=== PATIENT | male | born 1955 | race Caucasian/White ===

== ENCOUNTER 2021-04-06 08:40 | Emergency (ER) | payer MEDICARE ==
[2021-04-06] MEDS ORDERED: Heparin Sodium 5,000 Units/ML Vial IVPUSH ONE (08:58)
[2021-04-06] MEDS ORDERED: Aspirin 81 MG Tab.Chew PO ONE (08:58)
[2021-04-06] MEDS ORDERED: Tenecteplase 50 MG Kit IV ONE ×2 (09:13→09:45)
[2021-04-06] MEDS ORDERED: Nitroglycerin 0.4 MG Tab.SL ONE (09:13)
[2021-04-06] MEDS ORDERED: Clopidogrel 75 MG Tab PO ONE (09:15)
[2021-04-06] MEDS: Nitroglycerin 0.4 MG Tab.SL SL PRN ×3 (09:16→09:31)
--- NOTE | 2021-04-06 09:39 | CR ---
CHEST: Portable 04/06/2021 at 9:11 AM CLINICAL HISTORY:Chest pain COMPARISON:None FINDINGS: The heart size, pulmonary vascularity and hilar structures are normal. No infiltrate effusion or pneumothorax is seen. There is a nodular focus in the right lung base. This likely represents a small granuloma. Comparison with prior studies of be helpful IMPRESSION: No acute cardiopulmonary process. Right lower lobe nodule likely a granuloma
[2021-04-06 09:43] VITALS: BP 108/65; PULSE 76
--- NOTE | 2021-04-06 12:23 | EDM.PDOC ---
ED HPI GENERAL MEDICAL PROBLEM - General Chief Complaint: Chest Pain Stated Complaint: CHEST PAIN,ARMS NUMB,SWEATING Time Seen by Provider: 04/06/21 08:45 Source of Information: Reports: Patient, Family History Limitations: Reports: No Limitations - History of Present Illness INITIAL COMMENTS - FREE TEXT/NARRATIVE: This is a 65-year-old male with history of hypertension who presents with concerns of chest pain. He reports that he was walking across his yard at approximately 0700 this morning when he had sudden onset of substernal chest pain with radiation into the arms bilaterally. Pain is currently severe, 7 or 8/10. Does not seem to be exertional. No associated dyspnea. He has no history of cardiac disease. No history of similar pain in the past. Does report history of GERD but this is different. No lower extremity swelling or pain, no history of DVT. Pain is nonpleuritic. Chest Pain Score (Numeric/FACES): 8 - Related Data Allergies Allergy/AdvReac Type Severity Reaction Status Date / Time No Known Allergies Allergy Verified 04/06/21 08:52 Home Meds: Home Meds Lisinopril 20 mg PO DAILY 06/02/13 [History] Ascorbic Acid [Vitamin C] 500 mg PO DAILY 06/04/13 [History] Aspirin [Halfprin] 81 mg PO DAILY 06/04/13 [History] Multivitamin [Multivitamins] 1 cap PO DAILY 06/04/13 [History] Famotidine [Pepcid] 20 mg PO DAILY 04/06/21 [History] Past Medical History HEENT History: Reports: Cataract, Impaired Vision Cardiovascular History: Reports: Hypertension Gastrointestinal History: Reports: Colon Polyp, GERD Musculoskeletal History: Reports: Back Pain, Chronic, Fracture, Osteoarthritis - Infectious Disease History Infectious Disease History: Reports: Chicken Pox, Measles, Mumps - Past Surgical History Head Surgeries/Procedures: Reports: None HEENT Surgical History: Reports: Cataract Surgery Cardiovascular Surgical History: Reports: None GI Surgical History: Reports: Colonoscopy, Hernia, Inguinal Musculoskeletal Surgical History: Reports: Other (See Below) Other Musculoskeletal Surgeries/Procedures:: Plate in left arm Social & Family History - Tobacco Use Tobacco Use Status *Q: Never Tobacco User - Caffeine Use Caffeine Use: Reports: Soda - Recreational Drug Use Recreational Drug Use: No ED ROS GENERAL - Review of Systems Review Of Systems: See Below Constitutional: Reports: No Symptoms HEENT: Reports: No Symptoms Respiratory: Reports: No Symptoms Cardiovascular: Reports: Chest Pain Endocrine: Reports: No Symptoms GI/Abdominal: Reports: No Symptoms : Reports: No Symptoms Musculoskeletal: Reports: No Symptoms Skin: Reports: No Symptoms Neurological: Reports: No Symptoms Psychiatric: Reports: No Symptoms Hematologic/Lymphatic: Reports: No Symptoms Immunologic: Reports: No Symptoms ED EXAM, GENERAL - Physical Exam Exam: See Below Exam Limited By: No Limitations General Appearance: Alert, Mild Distress Nose: Normal Inspection Throat/Mouth: Normal Inspection Head: Atraumatic, Normocephalic Neck: Normal Inspection Respiratory/Chest: No Respiratory Distress, Lungs Clear Cardiovascular: Regular Rate, Rhythm GI/Abdominal: Soft, Non-Tender Back Exam: Normal Inspection Extremities: Normal Inspection Neurological: Alert, Oriented Psychiatric: Normal Affect, Normal Mood Skin Exam: Warm, Dry #2 Interpretation Rhythm: NSR [place]: Normal P-Wave: Present QRS: Normal ST-T: Elevated Course - Vital Signs Last Recorded V/S: Last Vital Signs Temp 36.2 C 04/06/21 09:09 Pulse 76 04/06/21 09:43 Resp 13 04/06/21 09:09 BP 108/65 04/06/21 09:43 Pulse Ox 100 04/06/21 09:09 - Orders/Labs/Meds Labs: Laboratory Tests 04/06/21 04/06/21 Range/Units 09:01 09:01 WBC 5.9 (4.5-11.0) K/uL RBC 4.99 (4.30-5.90) M/uL Hgb 15.3 H (12.0-15.0) g/dL Hct 45.2 (40.0-54.0) % MCV 91 (80-98) fL MCH 31 (27-31) pg MCHC 34 (32-36) % Plt Count 303 (150-400) K/uL Sodium 138 L (140-148) mmol/L Potassium 4.2 (3.6-5.2) mmol/L Chloride 103 (100-108) mmol/L Carbon Dioxide 26 (21-32) mmol/L Anion Gap 13.2 (5.0-14.0) mmol/L BUN 21 H (7-18) mg/dL Creatinine 1.5 H (0.8-1.3) mg/dL Est Cr Clr Drug Dosing 44.68 mL/min Estimated GFR (MDRD) 47 L (>60) Glucose 169 H (74-106) mg/dL Calcium 8.8 (8.5-10.1) mg/dL Total Bilirubin 0.5 (0.2-1.0) mg/dL AST 17 (15-37) U/L ALT 35 (12-78) U/L Alkaline Phosphatase 103 (46-116) U/L Total Protein 6.8 (6.4-8.2) g/dL Albumin 3.6 (3.4-5.0) g/dL Globulin 3.2 (2.3-3.5) g/dL Albumin/Globulin Ratio 1.1 L (1.2-2.2) Lipase 147 (73-393) U/L Meds: Medications Discontinued Medications Generic Name Dose Route Start Last Admin Trade Name Freq PRN Reason Stop Dose Admin Aspirin 324 mg 04/06/21 08:58 04/06/21 09:06 Aspirin 81 Mg Tab.Chew PO 04/06/21 08:59 324 mg ONETIME ONE Administration Clopidogrel Bisulfate 300 mg 04/06/21 09:15 04/06/21 09:18 Clopidogrel 75 Mg Tab PO 04/06/21 09:16 300 mg ONETIME ONE Administration Heparin Sodium (Porcine) 4,000 units 04/06/21 08:58 04/06/21 09:05 Heparin Sodium 5,000 Units/Ml Vial IVPUSH 04/06/21 08:59 4,000 units BOLUS ONE Administration Nitroglycerin 0.4 mg 04/06/21 09:15 04/06/21 09:31 Nitroglycerin 0.4 Mg Tab.Sl SL 04/07/21 09:15 0.4 mg Q5M PRN Administration Chest Pain Nitroglycerin Confirm 04/06/21 09:13 04/06/21 09:24 Nitroglycerin 0.4 Mg Tab.Sl Administered 04/06/21 09:14 Not Given Dose 0.4 mg .ROUTE .STK-MED ONE Tenecteplase 45 mg 04/06/21 09:45 04/06/21 09:41 Tenecteplase 50 Mg Kit IV 04/06/21 09:46 45 mg ONETIME ONE Administration Protocol - Re-Assessments/Exams Free Text/Narrative Re-Assessment/Exam: This is a 65-year-old male without known history of cardiac disease who presents with chest pain. EKG obtained on arrival in the emergency department shows an inferior STEMI with lateral reciprocal change. On exam he is noted to be mildly distressed, hypertensive on initial evaluation with a blood pressure of 160/100, otherwise normal vitals. With his concerning EKG we obtained immediate IV access. He was given an oral dose of aspirin. Stat chest x-ray was obtained and reassuring. He was given 2 doses of sublingual nitroglycerin with reduction in his pain. I discussed this case with the on-call auger machine offbearer in [place]. He agrees with our diagnosis of STEMI. At that time we ordered a bolus of heparin, 300 mg of Plavix, and the recommendation from the weight clerk was to proceed with thrombolysis given potential long transfer time to their facility. I had a risk-benefit discussion for tenecteplase administration with the patient, reviewed contraindications of which he had none, and we proceeded to administer this as well without any immediate known complication. Chest pain remained well controlled in the ED with several doses of sublingual nitro, he did show some drop in blood pressure with systolics around 100 to the mid 90s so he was also bolused with a liter of fluid, not surprising given his EKG findings which are suspect for a right-sided infarct. The patient was emergently transferred to [facility] in [place] for reevaluation in their emergency department and likely emergent cardiac catheterization. 04/06/21 12:18 Departure - Departure Time of Disposition: 10:30 Disposition: DC/Tfer to Acute Hospital 02 Reason for Transfer *Q: Primary PCI Indicated Clinical Impression: STEMI (ST elevation myocardial infarction) Qualifiers: Involved coronary artery: unspecified coronary artery Qualified Code(s): I21.3 - ST elevation (STEMI) myocardial infarction of unspecified site Referrals: Jabari Chester MD [Primary Care Provider] - Forms: ED Department Discharge Critical Care Note - Critical Care Note Total Time (mins): 35 Comments: 35 minutes of critical care time were spent diagnosing and treating ST elevation myocardial infarction requiring thrombolytic administration to prevent further life-threatening cardiac deterioration. This is exclusive of any separate billable procedures. Sepsis Event Note (ED) - Evaluation Sepsis Screening Result: No Definite Risk - Focused Exam Vital Signs: Vital Signs Temp Pulse Resp BP BP Pulse Ox 04/06/21 09:43 76 108/65 04/06/21 09:31 110/71 04/06/21 09:21 123/79 04/06/21 09:16 152/92 H 04/06/21 09:09 36.2 C 78 13 161/102 H 100 04/06/21 08:52 36.2 C 78 13 161/102 H 100
== END 2021-04-06 10:05 ==
LOC: JP.ED 08:40
DX: I21.3 ST elevation (STEMI) myocardial infarction of unspecified site (principal); I10 Essential (primary) hypertension; K21.9 Gastro-esophageal reflux disease without esophagitis; Z79.899 Other long term (current) drug therapy; Z79.82 Long term (current) use of aspirin
CPT/HCPCS: 36415; 37195; 71045; 80053; 83690; 85027; 96374; 99285; A9270; J1644; J3101

== ENCOUNTER 2021-07-05 14:27 | Emergency (ER) | payer MEDICARE ==
--- NOTE | 2021-07-05 14:47 | EDM.PDOC ---
ED HPI GENERAL MEDICAL PROBLEM - General Chief Complaint: Respiratory Problem Stated Complaint: SOB, POST SURGERY FEET SWOLLEN Time Seen by Provider: 07/05/21 14:30 Source of Information: Reports: Patient, Old Records History Limitations: Reports: No Limitations - History of Present Illness INITIAL COMMENTS - FREE TEXT/NARRATIVE: Ruiz is a 65-year-old male presenting to the ED for evaluation of increasing dyspnea and peripheral edema in the lower extremities over the last couple of days. Patient underwent emergent stenting 8 weeks ago for right coronary artery occlusion causing an acute coronary syndrome and during that evaluation was found to have tandem lesions in the LAD starting very near the left main. It was determined that they would do a staggered revascularization approach and on 06/26/2021 he underwent a coronary bypass graft x2 using the radial artery conduit. The patient had been doing well and was discharged from [facility] on 06/29/2021. - Related Data Allergies Allergy/AdvReac Type Severity Reaction Status Date / Time No Known Allergies Allergy Verified 04/06/21 08:52 Home Meds: Home Meds Ascorbic Acid [Vitamin C] 500 mg PO DAILY 06/04/13 [History] Aspirin [Halfprin] 81 mg PO DAILY 06/04/13 [History] Multivitamin [Multivitamins] 1 cap PO DAILY 06/04/13 [History] Acetaminophen/HYDROcodone [HYDROcodone-Acetaminophen 5-325 MG *] 1 tab PO Q4H PRN 07/05/21 [History] Amiodarone [Cordarone] 200 mg PO DAILY 07/05/21 [History] Clopidogrel [Plavix] 75 mg PO DAILY 07/05/21 [History] Metoprolol Succinate [Toprol XL] 25 mg PO DAILY 07/05/21 [History] Omeprazole 20 mg PO DAILY 07/05/21 [History] [id number]+D 1 tab PO BID 07/05/21 [History] atorvaSTATin [Lipitor] 40 mg PO BEDTIME 07/05/21 [History] Past Medical History HEENT History: Reports: Cataract, Impaired Vision Cardiovascular History: Reports: Hypertension Gastrointestinal History: Reports: Colon Polyp, GERD Musculoskeletal History: Reports: Back Pain, Chronic, Fracture, Osteoarthritis - Infectious Disease History Infectious Disease History: Reports: Chicken Pox, Measles, Mumps - Past Surgical History Head Surgeries/Procedures: Reports: None HEENT Surgical History: Reports: Cataract Surgery Cardiovascular Surgical History: Reports: None GI Surgical History: Reports: Colonoscopy, Hernia, Inguinal Musculoskeletal Surgical History: Reports: Other (See Below) Other Musculoskeletal Surgeries/Procedures:: Plate in left arm Social & Family History - Caffeine Use Caffeine Use: Reports: Soda ED ROS GENERAL - Review of Systems Review Of Systems: See Below Constitutional: Reports: Malaise HEENT: Reports: No Symptoms Respiratory: Reports: Shortness of Breath, Cough Cardiovascular: Reports: Edema Endocrine: Reports: No Symptoms GI/Abdominal: Reports: No Symptoms : Reports: No Symptoms Musculoskeletal: Reports: No Symptoms Skin: Reports: No Symptoms Neurological: Reports: No Symptoms Psychiatric: Reports: No Symptoms Hematologic/Lymphatic: Reports: No Symptoms Immunologic: Reports: No Symptoms ED EXAM, GENERAL - Physical Exam Exam: See Below Exam Limited By: No Limitations General Appearance: Alert, No Apparent Distress Throat/Mouth: Normal Oropharynx, Normal Voice, No Airway Compromise Head: Atraumatic, Normocephalic Neck: Normal Inspection, Supple. No: Carotid Bruit, Lymphadenopathy (R), Lymphadenopathy (L) Respiratory/Chest: No Respiratory Distress, Lungs Clear, Normal Breath Sounds, No Accessory Muscle Use. No: Crackles, Rales, Rhonchi, Wheezing Cardiovascular: Normal Peripheral Pulses, Regular Rate, Rhythm, No Murmur GI/Abdominal: Normal Bowel Sounds, Soft, Non-Tender Extremities: Pedal Edema (1+ pedal edema lower legs) Neurological: Alert, Oriented, Normal Cognition, No Motor/Sensory Deficits Psychiatric: Normal Affect, Normal Mood Skin Exam: Warm, Dry, Intact, Normal Color #1 Interpretation EKG Date: 07/05/21 Time: 14:46 Rhythm: NSR Rate (Beats/Min): 99 [place]: Normal P-Wave: Present (Prolonged [place] interval.) QRS: Normal ST-T: Normal QT: Normal Comparison: NA - No Prior EKG Course - Vital Signs Last Recorded V/S: Last Vital Signs Temp 36.5 C 07/05/21 14:38 Pulse 91 07/05/21 16:35 Resp 24 H 07/05/21 16:35 BP 108/63 07/05/21 16:35 Pulse Ox 95 07/05/21 16:35 - Orders/Labs/Meds Orders: Active Orders 24 hr Category Date Time Status Chest 1V Frontal [CR] Stat Exams 07/05/21 14:30 Taken Isolation [COMM] Stat Oth 07/05/21 14:31 Ordered EKG 12 Lead [EK] Routine Ther 07/05/21 14:30 Ordered Labs: Laboratory Tests 07/05/21 07/05/21 07/05/21 Range/Units 14:30 14:30 14:47 WBC 13.6 H (4.5-11.0) K/uL RBC 3.48 L (4.30-5.90) M/uL Hgb 10.5 L D (12.0-15.0) g/dL Hct 32.2 L (40.0-54.0) % MCV 93 (80-98) fL MCH 30 (27-31) pg MCHC 33 (32-36) % Plt Count 690 H (150-400) K/uL Neut % (Auto) 75.1 H (36-66) % Lymph % (Auto) 9.1 L (24-44) % [place] % (Auto) 11.2 H (2-6) % Eos % (Auto) 4.2 H (2-4) % Baso % (Auto) 0.4 (0-1) % Sodium 143 (140-148) mmol/L Potassium 4.0 (3.6-5.2) mmol/L Chloride 104 (100-108) mmol/L Carbon Dioxide 26 (21-32) mmol/L Anion Gap 12.9 (5.0-14.0) mmol/L BUN 22 H (7-18) mg/dL Creatinine 1.5 H (0.8-1.3) mg/dL Est Cr Clr Drug Dosing TNP Estimated GFR (MDRD) 47 L (>60) Glucose 119 H (74-106) mg/dL Calcium 8.6 (8.5-10.1) mg/dL Total Bilirubin 0.4 (0.2-1.0) mg/dL AST 35 D (15-37) U/L ALT 95 H (12-78) U/L Alkaline Phosphatase 109 (46-116) U/L Troponin I < 0.017 (0.000-0.056) ng/mL NT-Pro-B Natriuret Pep 712 H (5-125) pg/mL Total Protein 6.8 (6.4-8.2) g/dL Albumin 3.0 L (3.4-5.0) g/dL Globulin 3.8 H (2.3-3.5) g/dL Albumin/Globulin Ratio 0.8 L (1.2-2.2) Influenza Type A RNA Negative (NEGATIVE) RSV RNA (INAAT) Negative (NEGATIVE) Influenza Type B RNA Negative (NEGATIVE) SARS-CoV-2 RNA (KAIN) Negative (NEGATIVE) Meds: Medications Discontinued Medications Generic Name Dose Route Start Last Admin Trade Name Freq PRN Reason Stop Dose Admin Furosemide 40 mg 07/05/21 17:11 Furosemide 40 Mg Tab PO 07/05/21 17:12 ONETIME ONE Furosemide 40 mg 07/05/21 17:12 Furosemide 40 Mg Tab PO 07/05/21 17:13 ONETIME ONE - Radiology Interpretation Free Text/Narrative:: Reviewed the one-view portable chest x-ray demonstrating sternotomy wires from a recent open heart surgery. There is no acute pulmonary edema, however, there is a small left pleural effusion. - Re-Assessments/Exams Free Text/Narrative Re-Assessment/Exam: 07/05/21 16:20 reviewed the patient's labs showing a mild leukocytosis at 13.6 with 75% neutrophils, hemoglobin of 10.5, platelet count of 690,000. Comprehensive metabolic panel was performed showing a sodium of 143, potassium 4.0, chloride of 104, bicarbonate of 26, BUN of 22 with a creatinine 1.5 and a glucose of 119. AST is 35, ALT is 95, alkaline phosphatase is 109, troponin is normal at less than 0.017 and BNP is 712 showing mild elevation. GFR is calculated at 47. Patient is negative for Covid, RSV, influenza. EKG was reviewed and shows normal sinus rhythm and rate of 99 bpm with a prolonged [place] interval. There is old evidence of an inferior infarct and nonspecific ST-T changes. 07/05/21 17:18 I discussed the case with Dr. Chery, cardiovascular surgeon from [facility] who is covering for Dr. Gusman and he concurs that it probably is a good idea to give the patient a dose of Lasix today and in the morning again. He recommended that the patient contact Dr. Gusman's office after 8 AM tomorrow morning to be seen tomorrow. I did reassure the patient that the work-up today showed a little bit of fluid retention but was otherwise unremarkable. We will give the patient Lasix 40 mg p.o. now and then a dose that he can take in the morning and discharge him home at this time. Departure - Departure Time of Disposition: 17:19 Disposition: Home, Self-Care 01 Clinical Impression: Fluid retention, Peripheral edema, Status post aorto-coronary artery bypass graft CHF (congestive heart failure) Qualifiers: Heart failure type: unspecified Heart failure chronicity: acute Qualified Co de(s): I50.9 - Heart failure, unspecified Instructions: Edema, [id number], Preventing Heart Failure Referrals: Jabari Chester MD [Primary Care Provider] - Forms: ED Department Discharge Care Plan Goals: We are going to give you a dose of Lasix to help your kidneys get rid of excess fluid today and then take the second dose in the morning. Dr. Chery recommended that you contact Dr. Gusman's office after 8 AM tomorrow to be seen tomorrow. Should you develop any chest pain or worsening shortness of breath return immediately to the ER for reevaluation. Sepsis Event Note (ED) - Focused Exam Vital Signs: Vital Signs Temp Pulse Resp BP Pulse Ox 07/05/21 16:35 91 24 H 108/63 95 07/05/21 16:05 94 23 H 119/67 94 L 07/05/21 15:35 94 25 H 115/66 95 07/05/21 15:05 101 H 24 H 121/70 96 07/05/21 14:38 36.5 C 99 20 139/70 98 - Problem List & Annotations (1) CHF (congestive heart failure) SNOMED Code(s): 84479913 Code(s): I50.9 - HEART FAILURE, UNSPECIFIED Status: Acute Priority: High Current Visit: Yes Qualifiers: Heart failure type: unspecified Heart failure chronicity: acute Qualified Code(s): I50.9 - Heart failure, unspecified (2) Fluid retention SNOMED Code(s): 86199575 Code(s): R60.9 - EDEMA, UNSPECIFIED Status: Acute Priority: High Current Visit: Yes (3) Peripheral edema SNOMED Code(s): 612253328 Code(s): R60.9 - EDEMA, UNSPECIFIED Status: Acute Priority: High Current Visit: Yes (4) Status post aorto-coronary artery bypass graft SNOMED Code(s): 416004425, 70220810, 227467397 Code(s): Z95.1 - PRESENCE OF AORTOCORONARY BYPASS GRAFT Status: Acute Priority: High Current Visit: Yes - Problem List Review Problem List Initiated/Reviewed/Updated: Yes - My Orders Last 24 Hours: My Active Orders 07/05/21 14:30 Chest 1V Frontal [CR] Stat EKG 12 Lead [EK] Routine 07/05/21 14:31 Isolation [COMM] Stat - Assessment/Plan Last 24 Hours: My Active Orders 07/05/21 14:30 Chest 1V Frontal [CR] Stat EKG 12 Lead [EK] Routine 07/05/21 14:31 Isolation [COMM] Stat
[2021-07-05 15:25] LABS: CORONAVIRUS COVID-19 NAA NEGATIVE (NEGATIVE)
[2021-07-05 16:57] VITALS: BP 108/63; PULSE 91
[2021-07-05] MEDS ORDERED: Furosemide 40 MG Tab PO ONE ×2 (17:11→17:12)
--- NOTE | 2021-07-06 09:38 | CR ---
CHEST: Portable 07/05/2021 at at 3:11 PM CLINICAL HISTORY:Dyspnea COMPARISON:March 2021 FINDINGS: Patient has had previous sternotomy. There is a small left pleural effusion. There is persistent small dense nodule in the right lung base which is likely granuloma. Minimal patchy density in the left lower lobe may represent some patchy atelectasis. Infiltrate is felt less likely but not excluded Impression: Interval development of small left pleural effusion
== END 2021-07-05 17:45 | disposition home or self-care (01) ==
LOC: JP.ED 14:27
DX: I11.0 Hypertensive heart disease with heart failure (principal); I50.9 Heart failure, unspecified; K21.9 Gastro-esophageal reflux disease without esophagitis; M19.90 Unspecified osteoarthritis, unspecified site; Z95.1 Presence of aortocoronary bypass graft; Z79.82 Long term (current) use of aspirin; Z79.02 Long term (current) use of antithrombotics/antiplatelets; Z79.899 Other long term (current) drug therapy; Z20.822 Contact with and (suspected) exposure to COVID-19
CPT/HCPCS: 0241U; 36415; 71045; 80053; 83880; 84484; 85025; 93005; 99285; A9270